=== PATIENT | female | born 1955 | race Caucasian/White ===

== ENCOUNTER 2016-02-28 13:59 | Emergency (ER) | payer MEDICAID ==
[2016-02-28 14:54] VITALS: TEMP 98.7; BMI 46.0
[2016-02-28 15:56] VITALS: BP 176/78; PULSE 136
--- NOTE | 2016-02-28 16:08 | EDPRACDOC ---
- General Information Chief Complaint: Wound Stated Complaint: LEFT LEG INFECTION Time Seen by Provider: 02/28/16 15:55 Information Source: Patient Mode of Arrival:: Car Home Medications: Home Medications Desvenlafaxine Succinate [Pristiq] 100 mg PO DAILY 05/07/13 Gabapentin [Neurontin] 600 mg PO TID 05/07/13 Clonazepam [Klonopin] 0.5 mg PO BID PRN 12/21/14 Oxybutynin Chloride 5 mg PO Q6H 12/21/14 Levothyroxine [Synthroid, Levoxyl] 200 mcg PO DAILY #30 tablet 12/22/14 Bupropion HCl [Wellbutrin Sr] 100 mg PO DAILY 04/16/15 Carvedilol [Coreg] 12.5 mg PO .SEE COMMENTS 11/10/15 Ciprofloxacin HCl [Cipro] 500 mg PO BID #14 tab 11/10/15 Lactobacillus Combo No.11 [Probiotic] 1 each PO DAILY #30 cap.sprink 11/10/15 Nitroglycerin [Nitrostat] 0.4 mg SL [id number] 11/10/15 Cefdinir [Omnicef] 300 mg PO BID #20 cap 02/28/16 Allergies/Adverse Reactions: Allergies Allergy/AdvReac Type Severity Reaction Status Date / Time acetaminophen [From Vicodin] Allergy Nausea/Vomi Verified 11/10/15 14:40 ting hydrocodone bitartrate Allergy Nausea/Vomi Verified 11/10/15 14:40 [From Vicodin] ting oxycodone HCl [From Percocet] Allergy Nausea/Vomi Verified 11/10/15 14:40 ting - History of Present Illness Onset: 1 WEEK HPI: Pt c/o headache, dizziness, earache, congestion x 1 week. Pt c/o L leg wound x 5 yrs. Pt states she went to urgent care and was given clindamycin this week. Pt states area feels warm and painful. Location: Reports: Extremity Relevent History Of: Reports: None Prior Abscess: Reports: Same Pain: Reports: Mild Quality: Reports: Painful Associated Signs & Symptoms: Reports: None ED Past Medical History - History Reviewed Yes Nurses notes reviewed and agree except as marked - Patient Medical History Cardiac History: Reports: Hypertension, Congestive Heart Failure, Cardiac Catheterization (1990S NO PROBS FOUND), Hypercholesterolemia Respiratory History: Reports: Asthma ( CHILD), Pulmonary Embolism (Remote.) GI/ History: Reports: Urinary Tract Infection Musculoskeletal History: Reports: Arthritis. Denies: Gout Psychological History: Reports: Depression, Anxiety. Denies: Substance Use Disorder ( all) Systemic History: Reports: Hypothyroidism Surgical History: Reports: Cardiac Catheterization ( NO PROBS FOUND), Other (Bladder sling 2004) - Family Medical History Reports: Hypertension (DTG), Cancer (Maternal grandmother with lung cancer), Cardiac Disorders (Father from massive CT at age 55.). Denies: Diabetes, Stroke - Social Medical History Smoking Status: Never smoker Social History: Denies: Substance Use Disorder ( all) ETOH: None Substance Abuse: None EDM Review of Systems - Review of Systems Constitutional: No Symptoms Reported. negative: Fever, Chills, Weakness, Fatigue, Loss of Appetite Ears: Pain Throat: No Symptoms Reported. negative: Pain, Swelling Nose: Congestion Mouth: No Symptoms Reported. negative: Pain, Drooling Respiratory: No Symptoms Reported. negative: Cough, Brassy Cough, Barky Cough, Shortness of Breath, Wheezing, Hemoptysis Cardiovascular: No Symptoms Reported. negative: Chest Pain, Palpitations, Syncope, Edema, Orthopnea, PND, Skin Mottling, Cyanosis Gastrointestinal: No Symptoms Reported. negative: Pain, Constipation, Nausea, Vomiting, Diarrhea, Melena, Formula Intolerance Genitourinary: No Symptoms Reported. negative: Dysuria, Hematuria, Frequency, Discharge, Bleeding, Testicular Pain, Neurological: Headache Musculoskeletal: No Symptoms Reported. negative: Neck, Chestwall, Ribs, Back, Shoulder, Arm, Elbow, Forearm, Wrist, Hand, Pelvis, Hip, Femur, Knee, Leg, Ankle , Foot Integumentary: Wound Allergic/Immunologic: No Symptoms Reported. negative: Hives, Itching Hematologic: No Symptoms Reported. negative: Lymphadenopathy, Easy Bruising, Easy Bleeding Psychiatric: No Symptoms Reported. negative: Anxiety, Depression, Hallucinations, Insomnia, Suicidal - Physical Exam Constitutional: No apparent distress, Alert Oriented to: Time, Person, Place Last recorded Vital Signs: Last Vital Signs Temp 98.7 F 02/28/16 14:49 Pulse 136 H 02/28/16 15:55 Resp 20 02/28/16 15:55 BP 176/78 02/28/16 15:55 Pulse Ox 95 01/02/17 15:55 Oxygen Pulse Oxygen Saturation 95 O2 Device Room Air Oxygen Flow Rate Fraction of Inspired Oxygen ( FIO2) - HEENT Head: Normal ( normocephalic) Eye Exam: Normal (PERRL, EOMI, Sclera white) Oropharynx: Normal (Pharynx:Moist without exudate,Gums-no swelling) Tympanic Membrane: Bulging, Redness (R) ENT EAC: Normal TMJ: Normal Nose: No Symptoms Reported (septum midline) Neck: Normal (FROM, trachea at midline) - Respiratory/Cardiovascular Respiratory: Normal - CTA (BBS clear to auscultation without adventitious sounds ) Cardiovascular: Normal (RRR without murmur, gallop or rub) - Integumentary Skin: Normal, Warm, Dry Lymphatics: Normal (no adenopathy) - Neurologic Memory Impaired: Normal Motor Function: Normal (Normal tone, Pulses 2+ No cyanosis or edema, FROM) Mood Description: Normal Perception: Normal ED Abscess/Mass Exam - Integumentary Skin: Normal, Warm, Dry Mass: Other (firm tissure without erythema or exudate. 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) Lymphatics: Normal (No Adenopathy) - Differential Diagnosis Other (OTITIS MEDIA, chronic wound, atropic dermatitis) Decision Time to Discharge: 16:06 - Departure Disposition: Home Condition: Good Final Diagnosis: Chronic wound of extremity Otitis media Qualifiers: Otitis media type: unspecified Laterality: right Chronicity: unspecified Qualified Code(s): H66.91 - Otitis media, unspecified, right ear Instructions: Otitis Media (ED), Chronic Wound Care (ED) Education/Counseling Given To: Patient Education/Counseling Given Regarding: Diagnosis, Treatment, Follow Up Referrals: Juanis Smart NP [Primary Care Provider] - One Week Orestes Mayen MD [Staff Physician] - One Week Prescriptions: Cefdinir [Omnicef] 300 mg PO BID #20 cap Additional Instructions: Follow up with Personal MD for continued evaluation of wound and BP.
== END 2016-02-28 16:15 | disposition home or self-care (01) ==
LOC: ED 13:59 → EDMC 16:15
DX: H66.91 Otitis media, unspecified, right ear (principal)
CPT/HCPCS: 99283